=== PATIENT | male | born 2000 | race Caucasian/White ===

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

== ENCOUNTER 2022-08-06 00:45 | Emergency (ER) | payer OTHER, SELFPAY ==
[2022-08-06 00:45] VITALS: BP 165/88; PULSE 82; RESP 16; TEMP 36.6; O2SAT 96; BMI 17.5
--- NOTE | 2022-08-06 01:08 | EDS_ITS ---
HPI HPI - Psych History of Present Illness Chief Complaint: Mental Health Detail of Chief Complaint: Depression Informant: patient Onset/Context/Timing Onset: Month(s) Context: Gradual Onset Timing: Intermittent Current Severity: Mild Maximum Severity: Mild Associated Symptoms Associated Symptoms - Psych: Positive for Depressed; Negative for Flight of Ideas, Pressured Speech, Agitated, Angry, Hostile, Threatening, Confusion, Paranoia, Visual Hallucinations or Auditory Hallucinations Narrative Narrative: 21-year-old male history of depression since at least age 18 at that time he prescribed Effexor which he states he really did not take. Currently is on no medications. 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 He just to the last several months his depression seem to have gotten worse. He denies any s roque urge to commit suicide or hurt anyone else. He has never had a prior attempt. At 18 years of age he was admitted to [facility]. Currently he is not seeing anyone for his depression or his mental health. Tonight he will just 1 to come in and talk to somebody about this. Prior similar symptoms: Yes Recent Illness/Hospitalization: No PFSH PFSH Medical History no medical history Home Medications zolpidem 5 mg tablet (Ambien) 5 mg PO QHS PRN INSONO 08/06/22 [History Last Taken Unknown] Allergy/AdvReac Type Severity Reaction Status Date / Time azithromycin Allergy Anaphylaxis Verified 08/06/22 00:48 [From Zithromax Z-Tenzin] Sulfa (Sulfonamide Allergy Rash Verified 08/06/22 00:48 Antibiotics) Social History Smoking Status: Never smoker ROS ROS ED ROS Narrative Denies any recent illness. Review of Systems ROS Unobtainable: Denies due to encephalopathy Constitutional Constitutional ED: Denies chills or fever(s) Eyes Eyes: Denies blurry vision ENT ENT ED: Denies ear pain Cardiovascular Cardiovascular: Denies chest pain Respiratory/Chest Respiratory/Chest: Denies cough or dyspnea Gastrointestinal Gastrointestinal: Denies abdominal pain Genitourinary Genitourinary ED: Denies dysuria or hematuria Musculoskeletal Musculoskeletal: Denies arthralgias Integumentary Denies abscess Neurologic Neurologic: Denies headache(s) Psychiatric Psychiatric: Denies anxiety Endocrine Endocrinology: Denies polydipsia Hematologic/Lymphatic Hematologic/Lymphatic: Denies easy bleeding Allergic/Immunologic Allergic/Immunologic ED: Denies mouth swelling or tongue swelling EXAM Physical Exam Narrative Exam Narrative: 21-year-old male no acute distress. Vital signs are stable afebrile. He is awake alert. He is calm and collected. He makes eye contact. He is cooperative. H EENT exam unremarkable. Neck nontender no signs of trauma. No lymphadenopathy. Lungs clear to auscultation. Heart regular rhythm no murmur. Abdomen soft nontender. Moving all 4 extremities. No signs of trauma. No track ramos. Normal turner in strength. Normal dorsi plantarflexion. Back nontender. Neurologically is awake and alert. No signs of toxidrome. Normal neurologic exam. Const Vital Signs: 08/06/22 00:45 Temperature 97.9 F Temperature Source Temporal Pulse Rate 82 Respiratory Rate 16 Blood Pressure 165/88 H Blood Pressure Mean 113 Pulse Ox 96 Oxygen Delivery Method Room Air Positive well nourished and well developed; Negative for obese, cachectic, contractures or unkempt General Appearance ED: well developed and NAD; Negative for unkempt, cachectic, contractures or pallor Nutritional Appearance: Negative for cachectic or obese HEENT Reports moist mucous membranes normocephalic and atraumatic; Negative for trauma Eyes PERRL and EOMs intact bilaterally General Eye ED: Negative for pale conjunctiva or scleral icterus Neck no lymphadenopathy, supple and no JVD General: Negative for tenderness Resp normal respiratory effort and clear to auscultation bilaterally Effort and Inspection: Negative for retractions Auscultation: Negative for rales, rhonchi or wheezes Cardio S1 normal heart sound, S2 normal heart sound and no murmurs Palpation: Negative for other Rate: regular rate Rhythm: regular rhythm GI non-tender, non-distended and no masses Inspection: Negative for abdominal distention Auscultation: normoactive bowel sounds Palpation: soft; Negative for tender or guarding Back/Spine no CVA tenderness General Back: Negative for CVA tenderness Cervical Spine: Negative for cervical spine tenderness Thoracic Spine / Upper Back: Negative for thoracic spinal tenderness Lumbar Spine / Lower Back: Negative for lumbar spinal tenderness Coccyx: Negative for other Extremity normal to inspection General Extremety ED: Negative for edema or tenderness General Extremity: Negative for edema Neuro oriented x3 and CN's II-XII intact bilaterally Sensorium / Orientation: alert, oriented to person, oriented to place and oriented to time; Negative for orientation impaired, confused, lethargic or stuporous Motor Exam: strength 5/5 throughout Psych mental status grossly normal, thought process normal, cooperative, affect normal, speech normal, activity/motor behavior normal, denies hallucinations, denies homicidal ideation and denies suicidal ideation Appearance: grossly normal, appropriate and well kempt; Negative for unkempt, disheveled, bizarre or intubated Attitude: calm, engaged, No paranoid, No withdrawn, No bizarre and No uncooperative Activity / Motor Behavior: appropriate eye contact; Negative for psychomotor agitation, restless, mannerisms, stereotypies or avoids eye contact Speech: normal speech and No incoherent Mood & Affect: depressed Thought Process: normal thought process Thought Content: normal thought content Attention / Concentration: attention grossly intact Memory / Cognition: memory grossly intact Insight: insight good Judgement: judgement good Skin General Skin Exam: Negative for jaundice or pallor Lesions: no lesions Rashes: no rashes Trauma: Negative for abrasion Wounds: Negative for amputation MDM MDM MDM Narrative Medical decision making narrative: 21-year-old male history of depression increased depression lately. At this time I do not feel he is a significant suicide risk. He feels comfortable being discharged home he does state he would be with his girlfriend zaina. His mom also lives locally. He will talk to crisis and then will make a disposition decision at that time. I think most likely he will be able to be discharged home with follow-up. Patient spoke with the counseling center personnel on-call zaina. They are into an out reach and follow-up with him tomorrow. Begin instructions of follow-up with the counseling center as an outpatient. Return if feeling worse or suicidal. Discharge Plan Triage Chief Complaint: Mental Health ED Provider: Qamar Johnson Dx/Rx/DC Orders Clinical Impression: Depression Instructions: ED Depression Prescriptions: No Action zolpidem [Ambien] 5 mg Tablet 5 mg PO QHS PRN (Reason: INSONO) Primary Care Provider: Rush Jo Referrals: Counseling,Center [Group of Physicians] - As soon as possible Rush Jo [Primary Care Provider] - Activity Restrictions/Additional Instructions: Call and follow-up with the counseling center to make an actual appointment. After evaluated by them they can determine along with your input if you need to be started on antidepressant medications. Return emergency department if you are feeling worse or that you might harm yourself. Disposition Disposition: Home, Self Care
[2022-08-06 01:32] VITALS: BP 165/88; PULSE 82; RESP 16; O2SAT 96
== END 2022-08-06 01:33 | disposition home or self-care (01) ==
PROVIDERS: Emergency Provider Emergency Medicine; PCP Family Medicine; Visit Provider Emergency Medicine
DX: F32.A Depression, unspecified (principal); Z79.899 Other long term (current) drug therapy
CPT/HCPCS: 99282

== ENCOUNTER 2023-03-24 21:03 | Emergency (ER) | payer BC, SELFPAY ==
[2023-03-24 21:04] VITALS: BP 171/92; PULSE 87; RESP 16; TEMP 36.6; O2SAT 98; BMI 17.4
--- NOTE | 2023-03-24 21:18 | EX.ED.DYSGE1 ---
HPI History of Present Illness Chief Complaint: Dizziness Informant: patient Narrative Narrative: Patient presents with concern for being dehydrated or having heat exhaustion. He states he was in [place] last week. He feels very dehydrated. Yesterday he drank 2 sports drinks and a glass of water and that did not help. He states he is not urinating as much as normal. He is not sure if it was dark or not. He does not have dysuria. He is not having muscle pain or aches. No fevers chills. He is not having vertigo. He is not actually truly dizzy. He just states he feels like he is dehydrated and dry. He has had no trouble walking or coordination. No spinning sensation. No presyncopal sensation. He does feel little bit tired. Patient denies any medical conditions. Allergy to azithromycin and sulfa He does have his medical card. Only surgeries tonsils and adenoids. PFSH PFS Medical History no medical history Home Medications zolpidem 5 mg tablet (Ambien) 5 mg PO QHS PRN INSONO 08/06/22 [History Last Taken Unknown] Allergy/AdvReac Type Severity Reaction Status Date / Time azithromycin Allergy Anaphylaxis Verified 03/24/23 21:07 [From Zithromax Z-Tenzin] Sulfa (Sulfonamide Allergy Rash Verified 03/24/23 21:07 Antibiotics) Social History Smoking Status: Never smoker ROS ROS ED ROS Narrative A complete review of systems was performed and is negative except as documented in the history of present illness. Some specific details below. Constitutional: No recent fevers or chills. No malaise or muscle aches. EYE: No visual complaints or pain. ENT: No difficulty swallowing. No swelling. No pain. CV: No chest pain or palpitations. Respiratory: No dyspnea. No hemoptysis. No difficulty taking breaths. GI: No nausea and vomiting. He is drinking fluids. He states his stools were a little bit softer but not watery. No blood. : No frequency dysuria or hematuria. He states there is less amount of urine than normal. Musculoskeletal: No recent trauma. No pains. Skin: No rash. Nondiaphoretic. Neuro: No weakness or numbness. Endocrine: No polyuria or polydipsia. EXAM Physical Exam Narrative Exam Narrative: CONSTITUTIONAL: Patient is nontoxic in appearance. The patient looks comfortable. Patient walked back to the room without any difficulty. HEENT: No notable trauma. Mucous membranes minimally dry. EYES: No conjunctival injection. No pallor or icterus. CARDIOVASCULAR: Regular rate. Regular rhythm. No notable murmur. No JVD. RESPIRATORY: No respiratory distress. Breathing is unlabored. No wheezes. No rhonchi. No rales. No pain with a deep breath. GASTROINTESTINAL: Not distended. Bowel sounds are normal. No tenderness. No mass GENITOURINARY: No tenderness over the bladder. No CVA tenderness. MUSCULOSKELETAL: Atraumatic. No peripheral edema. No indication of muscular tenderness NEUROLOGICAL: Patient is alert and appropriate. No focal deficit noted. SKIN: No noted rashes. No petechiae or purpura. No diaphoresis. PSYCHIATRIC: Patient is calm. Mood is appropriate. Const Vital Signs: 03/24/23 21:04 03/24/23 21:28 Temperature 98 F Temperature Source Temporal Pulse Rate 87 Respiratory Rate 16 Respiratory Effort Normal Non-Labored Respiratory Pattern Normal Blood Pressure 171/92 H Blood Pressure Mean 118 Pulse Ox 98 Oxygen Delivery Method Room Air MDM MDM MDM Narrative Medical decision making narrative: Patient's electrolytes show no acute process. There was mild elevation of BUN at 20. Glucose is normal at 85 Calcium is normal at 8.9. Urinalysis showed no sign of infection. No sign of significant dehydration. It was clear. It was not tea colored. Small amount of protein. This can be rechecked. Patient was given IV fluids here. We are rechecking his blood pressure at this time. I do not think that blood pressure needs to be treated. But if is still high I would recommend to follow-up with his primary physician which she should have anyway. I have encouraged p.o. fluids. We discussed returning if he gets muscle aches, darkening the urine, vomiting fevers or any other symptoms Lab Data Attestation: I reviewed the patient's lab results. Labs: Laboratory Results - last 24 hr 03/24/23 03/24/23 21:20 21:26 Sodium 141 Potassium 3.5 Chloride 107 Carbon Dioxide 24.0 Anion Gap 10 BUN 20 H Creatinine 1.14 Estim Creat Clear Calc 79.94 Est GFR (MDRD) Af Amer 104 Est GFR (MDRD) Non-Af 86 BUN/Creatinine Ratio 17.5 Glucose 85 Calcium 8.9 Urine Color Yellow Urine Clarity Clear Urine pH 7.0 Ur Specific Stuart 1.010 Urine Protein 15 H Urine Glucose (UA) Normal Urine Ketones Negative Urine Occult Blood Negative Urine Nitrite Negative Urine Bilirubin Negative Urine Urobilinogen Normal Ur Leukocyte Esterase Negative Urine RBC 0 SEEN Urine WBC 0 SEEN Ur Squamous Epith Cells 0 SEEN Urine Bacteria 0 SEEN Urine Mucus 0 SEEN Discharge Plan Triage Chief Complaint: Dizziness ED Provider: Lorenzo Ramirez Dx/Rx/DC Orders Clinical Impression: Dehydration, mild Instructions: ED Dehydration (Adult) Prescriptions: No Action zolpidem [Ambien] 5 mg Tablet 5 mg PO QHS PRN (Reason: INSONO) Primary Care Provider: Care Physician,No Primary Referrals: Tia Kaur MD [Med Staff - Academic Support Specialist] - 3-5 Days if not improving NOT,DEFINED [Non-Staff] - Activity Restrictions/Additional Instructions: Your blood pressure was mildly elevated at first check here today. You should follow-up with her primary physician for recheck just to make sure that this is not an ongoing issue. Make sure you drink plenty of fluids over the next few days. Try to avoid caffeinated drinks that may dehydrate you further. Disposition Disposition: Home, Self Care
[2023-03-24] MEDS: 0.9% Normal Saline 1,000 ML 1000 ML IV (21:27)
[2023-03-24 21:33] LABS: Bacteria 0 SEEN /hpf (None Seen); Mucous, Urine 0 SEEN /hpf (<or=2+); Red Blood Cells-Urine 0 SEEN /hpf (0-5); Squamous Epithelial Cells - UA 0 SEEN /hpf (0-5); White Blood Cells 0 SEEN /hpf (0-5)
[2023-03-24 21:39] LABS: Color, Urine Yellow (Yellow); Glucose, Dipstick Normal (Normal); Ketone-Dipstick Negative (Negative); Leukocyte Esterase-Dipstick Negative /ul (Negative); Nitrite-Dipstick Negative (Negative); Occult Blood-Urine Negative /ul (Negative); Protein-Dipstick 15 mg/dl (Negative); Urine Bilirubin Dipstick Negative (Negative); Urine Clarity Clear (Clear); Urine Urobilinogen Normal (Normal)
[2023-03-24 21:53] LABS: Anion Gap 10 (5-15); BUN 20 mg/dL (7-18); BUN/Creat Ratio 17.5 RATIO (10-20); Calcium,Total 8.9 mg/dL (8.5-10.1); Chloride 107 mmol/L (98-107); Creatinine, Serum 1.14 mg/dL (0.70-1.30); EST Glomerular Filtration Rate 86 mL/min (>60); Est Glom Filt Rate - Afr Amer 104 mL/min (>60); Estimated Creatinine Clearance 79.94 ml/min; Glucose 85 mg/dL (74-106); Potassium 3.5 mmol/L (3.5-5.1); Sodium Level 141 mmol/L (136-145)
[2023-03-24 22:27] VITALS: BP 135/80; PULSE 78; RESP 16
== END 2023-03-24 22:28 | disposition home or self-care (01) ==
LOC: ED 21:37
PROVIDERS: Emergency Provider Emergency Medicine; Visit Provider Emergency Medicine
DX: E86.0 Dehydration (principal); R42 Dizziness and giddiness
CPT/HCPCS: 80048; 81001; 96360; 99282; J7030; A4216

== ENCOUNTER 2023-03-25 12:14 | Emergency (ER) | payer BC, SELFPAY ==
[2023-03-25 12:15] VITALS: BP 170/87; PULSE 73; RESP 18; TEMP 36.6; O2SAT 96; BMI 17.2
--- NOTE | 2023-03-25 13:00 | RAD_ITS ---
INDICATION: Left upper quadrant pain EXAMINATION/TECHNIQUE: X-RAY - XR Abdomen Series W/ Chest 1 View COMPARISON: : FINDINGS: --Chest: LINES/DEVICES: None. LUNGS: No consolidation, edema or effusion. No pneumothorax. MEDIASTINUM AND CARDIOVASCULAR STRUCTURES: Cardiac silhouette not enlarged. Central airways and mediastinal contour are unremarkable. BONES AND SOFT TISSUES: No acute findings. --Abdomen: BOWEL GAS PATTERN: Non-obstructive. No bowel or stomach distention. FREE AIR: None visualized. ORGANOMEGALY: Not seen. CALCIFICATIONS: No abnormal calcifications observed. BONES AND SOFT TISSUES: No acute findings. RAD/Acute Abdomen Inc Chest IMPRESSION: Negative chest and abdominal series. Electronically Signed: Zoya Pederson MD at 13:32 EDT ,
--- NOTE | 2023-03-25 13:06 | EX.ED.DYSGE1 ---
HPI History of Present Illness Chief Complaint: Abd Pain Narrative Narrative: Patient is a 22-year-old male who is presenting to the ER today with chief complaint of intermittent left upper quadrant pain for the past 3 days. Patient had just recently traveled to [place] and back a few weeks ago. Patient was in the ER yesterday, patient felt dehydrated. Patient had a thorough work-up done, patient was given IV fluids, electrolytes were checked, and patient was discharged. Patient did not mention yesterday that he was having intermittent left upper quadrant pain for the past 3 days. Patient states that he is having a normal soft stool bowel movement. Patient does not believe he is constipated. Patient's had no fall, no trauma, no recent sick contacts, no recent mono exposure. Patient was researching his symptoms on [employer], and patient is concerned about his spleen. Patient has no history of splenic etiology in the past. Patient has no acid reflux or heartburn. No nausea or vomiting today. Patient been eating and drinking without difficulty. No other acute complaints PFSH PFSH Home Medications zolpidem 5 mg tablet (Ambien) 5 mg PO QHS PRN INSONO 08/06/22 [History Last Taken Unknown] Allergy/AdvReac Type Severity Reaction Status Date / Time azithromycin Allergy Anaphylaxis Verified 03/25/23 12:16 [From Zithromax Z-Tenzin] Sulfa (Sulfonamide Allergy Rash Verified 03/25/23 12:16 Antibiotics) Social History Smoking Status: Never smoker ROS ROS ED ROS Narrative REVIEW OF SYSTEMS: Unless otherwise stated in this report the patient's positive and negative responses for review of systems for constitutional, eyes, ENT, cardiovascular, respiratory, gastrointestinal, neurological, , musculoskeletal, and integument systems and related systems to the presenting problem are either stated in the history of present illness or were not pertinent or were negative for the symptoms and/or complaints related to the presenting medical problem. EXAM Physical Exam Narrative Exam Narrative: Vital signs reviewed and patient is not hypoxic. General: The patient appears well and in no apparent distress. Patient is resting comfortably on cart. Not toxic, lethargic, or listless. Skin: Warm, dry, no pallor noted. There is no rash noted. Head: Normocephalic, atraumatic Eye: Normal conjunctiva, no drainage, EOMI. PERRL. Ears, Nose, Mouth, and Throat: oral mucosa is moist. Nares patent. Mouth without vesicles. Ear canals patent. Tm's without Erythema Cardiovascular: Regular Rate and Rhythm, no murmurs, gallops, or rubs Respiratory: Patient is in no distress, no accessory muscle use, lungs are clear to auscultation, no wheezing, rales or rhonchi Back: non-tender, no CVA tenderness bilaterally to percussion. NO CTLS midline or paracervicl tenderness to palpation. GI: Soft, patient has minimal tenderness to palpation to left upper quadrant, no peritoneal signs, no flank pain bilateral, no tenderness to palpation, no masses appreciated. No rebound, guarding, or rigidity noted. Musculoskeletal: The patient has full range of motion of all extremities and joints with no difficulty. Patient has no motor, no sensory deficits. Neurological: A&O x4, normal speech, no focal neurological deficits. Psychiatric: Cooperative Const Vital Signs: 03/25/23 12:15 Temperature 98 F Temperature Source Temporal Pulse Rate 73 Respiratory Rate 18 Blood Pressure 170/87 H Blood Pressure Mean 114 Pulse Ox 96 Oxygen Delivery Method Room Air MDM MDM Radiography Chest X-Ray - ED: Read by ED Physician (Dr Astorga read. abdominal series and chest x-ray showed no acute cardiopulmonary disease, no infiltrate, no effusion. This was read by Dr. Astorga. Abdominal x-ray shows no air-fluid levels, no acute pathology) Diagnostic Testing: Clinical Impression(s) from Imaging Studies Acute Abdomen Series 03/25/23 13:00 IMPRESSION: Negative chest and abdominal series. Electronically Signed: Zoya Pederson MD at 13:32 EDT , Treatment and Re-Evaluation :: Patient abdominal x-ray and chest x-ray showed no acute pathology. Education was done at bedside. Patient has been eating and drinking well no difficulty. Patient appears to have some gas left upper quadrant that could be causing his discomfort today. No obstruction, no ileus, no air-fluid levels, no acute pathology. Patient will follow-up with PCP. Education done. No questions at discharge Discharge Plan Triage Chief Complaint: Abd Pain ED Provider: Tal Astorga Dx/Rx/DC Orders Clinical Impression: Dehydration, mild Instructions: ED Abdominal Pain Unkn Cause Male... Prescriptions: No Action zolpidem [Ambien] 5 mg Tablet 5 mg PO QHS PRN (Reason: INSONO) Primary Care Provider: Care Physician,No Primary Referrals: Care Physician,No Primary [Primary Care Provider] - Disposition Disposition: Home, Self Care
== END 2023-03-25 14:05 | disposition home or self-care (01) ==
PROVIDERS: Emergency Provider Emergency Medicine; Visit Provider Emergency Medicine
DX: E86.0 Dehydration (principal); R10.12 Left upper quadrant pain
CPT/HCPCS: 74022; 99282

== ENCOUNTER 2023-10-13 17:14 | Emergency (ER) | payer BC, SELFPAY ==
[2023-10-13 17:15] VITALS: BP 216/194; PULSE 103; RESP 18; TEMP 36.8; O2SAT 100; BMI 17.9
--- NOTE | 2023-10-13 17:25 | EKG12_ITS ---
Test Reason : CP Blood Pressure : / mmHG Vent. Rate : 102 BPM Atrial Rate : 102 BPM P-R Int : 132 ms QRS Dur : 086 ms QT Int : 322 ms P-R-T Axes : 069 082 029 degrees QTc Int : 419 ms Sinus tachycardia Otherwise normal ECG Confirmed by JEWELL NELSON, THEA ([id number]), editor department ROSENDO HERZOG ([id number]) on 10/15/2023 12:07:11 PM Referred By: Confirmed By:THEA CORCORAN MD
--- NOTE | 2023-10-13 17:26 | ED.VIS.CHEST ---
HPI <MICHAEL Tao - Last Filed: 10/13/23 18:36> History of Present Illness Chief Complaint: Chest Pain Narrative Narrative: 23-year-old male with no past medical history presents with throbbing midsternal chest pain that started around noon. He states he does not recall what he was doing when it started but he was not exerting himself. Pain comes and goes with no pattern. He has no shortness of breath, nausea, vomiting, or diaphoresis. He smokes marijuana; he does not use tobacco. He does not take any medications. No personal cardiopulmonary history. He states his dad has had blood clots and is not sure if anyone has cardiac problems. PFSH <MICHAEL Tao Last Filed: 10/13/23 18:36> PFSH Home Medications zolpidem 5 mg tablet (Ambien) 5 mg PO QHS PRN INSONO 08/06/22 [History Last Taken Unknown] Allergy/AdvReac Type Severity Reaction Status Date / Time azithromycin Allergy Anaphylaxis Verified 10/13/23 17:15 [From Zithromax Z-Tenzin] Sulfa (Sulfonamide Allergy Rash Verified 10/13/23 17:15 Antibiotics) Social History Smoking Status: Never smoker ROS <MICHAEL Tao Last Filed: 10/13/23 18:36> ROS ED ROS Narrative Constitutional: Negative for fever, chills, malaise. CVS: Positive for chest pain. Negative for palpitations, syncope. Respiratory: Negative for shortness of breath, cough. GI: Negative for abdominal pain, nausea, vomiting, melena, hematochezia. Neuro: Negative for headache. EXAM <MICHAEL Tao Last Filed: 10/13/23 18:36> Physical Exam Narrative Exam Narrative: CONST: Patient sitting in no acute distress. EYES: Normal inspection. NECK: Normal inspection. RESP: No respiratory distress, CTAB. CVS: Tachycardia around 110 bpm, regular rhythm, no murmur, no gallop. No chest wall tenderness. ABD: Soft and nontender, no guarding or rebound, nondistended. SKIN: Color normal, no rash, warm, dry, intact. EXTREMITIES: Normal appearance, no pedal edema. 2+ radial and DP pulses. NEURO: Oriented x4. PSYCH: Normal affect. Const Vital Signs: 10/13/23 17:15 10/13/23 17:29 10/13/23 17:37 Temperature 98.3 F Temperature Source Temporal Pulse Rate 103 H Respiratory Rate 18 Blood Pressure 216/194 H 143/69 H Blood Pressure Mean 201 93 Pulse Ox 100 Oxygen Delivery Method Room Air Room Air 10/13/23 18:16 10/13/23 18:35 Temperature Temperature Source Pulse Rate 92 Respiratory Rate 18 Blood Pressure 132/79 H 139/71 H Blood Pressure Mean 96 93 Pulse Ox 99 Oxygen Delivery Method Room Air <Dr. Sammy Alonso DO - Last Filed: 10/13/23 19:27> Physical Exam Const Vital Signs: 10/13/23 17:15 10/13/23 17:29 10/13/23 17:37 Temperature 98.3 F Temperature Source Temporal Pulse Rate 103 H Respiratory Rate 18 Blood Pressure 216/194 H 143/69 H Blood Pressure Mean 201 93 Pulse Ox 100 Oxygen Delivery Method Room Air Room Air 10/13/23 18:16 10/13/23 18:35 Temperature Temperature Source Pulse Rate 92 Respiratory Rate 18 Blood Pressure 132/79 H 139/71 H Blood Pressure Mean 96 93 Pulse Ox 99 Oxygen Delivery Method Room Air <MICHAEL Tao - Last Filed: 10/13/23 18:36> Heart Score History: Slightly/Non-Suspicious ECG: Normal Age: </= 45 years Risk Factors: No Risk Factors Score: 0 <Dr. Sammy Alonso DO - Last Filed: 10/13/23 19:27> Heart Score Score: [address] [facility] <MICHAEL Tao - Last Filed: 10/13/23 18:36> [facility] Narrative Medical decision making narrative: Patient presents with throbbing midsternal chest pain that started around noon. He has no aggravating or alleviating factors. He appears well and nontoxic. Initially he was hypertensive but I do not think this was an accurate reading and recheck is 143/69. Heart rate is between 90 to 105 bpm and sinus rhythm. Lungs are clear. Abdomen soft and nontender. He has no signs of edema or clinical signs of DVT. Cardiac workup was ordered and since he was initially tachycardic I ordered a D-dimer. Labs show white count of 13.5, mild hypokalemia at 3.2 which was replaced p.o. Troponin and D-dimer are within normal limits. EKG is nonischemic and CXR shows no acute process. I do not think he needs serial cardiac enzymes as he has had pain for 5+ hours at this point. I discussed with him we did not find a life-threatening etiology of his symptoms and recommended he establish with a primary care doctor return if symptoms worsen. He was discharged in stable condition. Lab Data Attestation: I reviewed the patient's lab results. Labs: Laboratory Results - last 24 hr 10/13/23 17:27 WBC 13.5 H RBC 5.51 Hgb 17.1 H Hct 48.0 MCV 87.1 MCH 31.0 MCHC 35.6 RDW Std Deviation 39.2 RDW Coeff of Toni 12.2 Plt Count 276 MPV 11.3 Immature Gran % (Auto) 0.400 Neut % (Auto) 61.7 Lymph % (Auto) 29.9 Lares % (Auto) 6.4 Eos % (Auto) 1.2 Baso % (Auto) 0.4 Absolute Neuts (auto) 8.3 H Absolute Lymphs (auto) 4.04 Nucleated RBC % 0 D-Dimer Quant (PE/DVT) < 0.27 L Sodium 137 Potassium 3.2 L Chloride 105 Carbon Dioxide 23.0 Anion Gap 9 BUN 24 H Creatinine 1.18 Estim Creat Clear Calc 78.50 Est GFR (MDRD) Af Amer 99 Est GFR (MDRD) Non-Af 82 BUN/Creatinine Ratio 20.3 H Glucose 112 H Calcium 9.4 Troponin I High Sens 4 Radiography Diagnostic Testing: Clinical Impression(s) from Imaging Studies Chest X-Ray 10/13/23 17:30 IMPRESSION: No acute cardiopulmonary abnormality. No interval change. Electronically Signed: Denver Isaac MD at 17:54 EST , ED attending interpretation of 1-view chest x-ray shows normal heart size, no acute infiltrate, edema, or effusion. EKG Initial EKG: Attestation: I personally reviewed and interpreted this EKG as follows: Interpretation: No Acute Injury Pattern and Sinus Tachycardia Comments: Sinus tachycardia at 102 bpm No acute ischemic changes <Dr. Sammy Alonso, DO - Last Filed: 10/13/23 19:27> [facility] MDM Narrative Medical decision making narrative: Patient presents with throbbing midsternal chest pain that started around noon. He has no aggravating or alleviating factors. He appears well and nontoxic. Initially he was hypertensive but I do not think this was an accurate reading and recheck is 143/69. Heart rate is between 90 to 105 bpm and sinus rhythm. Lungs are clear. Abdomen soft and nontender. He has no signs of edema or clinical signs of DVT. Cardiac workup was ordered and since he was initially tachycardic I ordered a D-dimer. Labs show white count of 13.5, mild hypokalemia at 3.2 which was replaced p.o. Troponin and D-dimer are within normal limits. EKG is nonischemic and CXR shows no acute process. I do not think he needs serial cardiac enzymes as he has had pain for 5+ hours at this point. I discussed with him we did not find a life-threatening etiology of his symptoms and recommended he establish with a primary care doctor return if symptoms worsen. He was discharged in stable condition. This patient was seen with a PA/[employer]ER Individually assessed they patient including history and physical. I have reviewed everything on the chart that is available and agree with the documentation provided by the PA/[employer]ER including discussion about the assessment, treatment plan, discussion, and return precautions. With chest pressure which started around noon. He describes it as throbbing. No history of cardiac disease. He does have a history of anxiety he states that he is not take anything for this. Blood pressure initially elevated at 216/94 but after rechecking this and monitoring it is down to 139/71 differential includes acute coronary syndrome, pneumonia, PE, dissection, anxiety. CBC was obtained to assess white blood cell count, hemoglobin, platelets. BMP to assess renal function, electrolytes, glucose. High-sensitivity troponin and EKG were obtained to assess for dysrhythmia and ischemia. Chest x-ray to rule out pneumonia. D-dimer to rule out PE. Leukocytosis of 13.5 found on CBC. Renal function is normal. Potassium slight low at 3.2. High-sensitivity troponin is 4. I do not believe he is a delta troponin. D-dimer is negative. EKG on my interpretation shows a sinus tachycardia with a ventricular to 108 bpm without sign of ischemic change or ectopy on my interpretation. Chest x-ray my interpretation shows no acute process. Since the patient is feeling better and is currently chest pain-free with a negative work-up I feel he stable for discharge. Return precautions were discussed. Impression: 1. Chest pain Lab Data Labs: Laboratory Results - last 24 hr 10/13/23 17:27 WBC 13.5 H RBC 5.51 Hgb 17.1 H Hct 48.0 MCV 87.1 MCH 31.0 MCHC 35.6 RDW Std Deviation 39.2 RDW Coeff of Toni 12.2 Plt Count 276 MPV 11.3 Immature Gran % (Auto) 0.400 Neut % (Auto) 61.7 Lymph % (Auto) 29.9 Lares % (Auto) 6.4 Eos % (Auto) 1.2 Baso % (Auto) 0.4 Absolute Neuts (auto) 8.3 H Absolute Lymphs (auto) 4.04 Nucleated RBC % 0 D-Dimer Quant (PE/DVT) < 0.27 L Sodium 137 Potassium 3.2 L Chloride 105 Carbon Dioxide 23.0 Anion Gap 9 BUN 24 H Creatinine 1.18 Estim Creat Clear Calc 78.50 Est GFR (MDRD) Af Amer 99 Est GFR (MDRD) Non-Af 82 BUN/Creatinine Ratio 20.3 H Glucose 112 H Calcium 9.4 Troponin I High Sens 4 Radiography Diagnostic Testing: Clinical Impression(s) from Imaging Studies Chest X-Ray 10/13/23 17:30 IMPRESSION: No acute cardiopulmonary abnormality. No interval change. Electronically Signed: Denver Isaac MD at 17:54 EST , Discharge Plan Triage Chief Complaint: Chest Pain ED Midlevel Provider: Angie Gordillo ED Provider: Sammy Alonso Dx/Rx/DC Orders Clinical Impression: Chest pain Instructions: Chest Pain UKO Prescriptions: No Action zolpidem [Ambien] 5 mg Tablet 5 mg PO QHS PRN (Reason: INSONO) Primary Care Provider: Care Physician,No Primary Referrals: Geeta Archer MD [Med Staff - Ocular Care Technician] - Care Physician,No Primary [Primary Care Provider] - Activity Restrictions/Additional Instructions: Today all of your testing was normal. I recommend you call and get a primary care appointment for follow-up. Disposition Disposition: Home, Self Care Discharge Date/Time: 10/13/23 18:43
--- NOTE | 2023-10-13 17:30 | RAD_ITS ---
EXAM: XR CHEST, 1 VIEW CLINICAL INDICATION: chest pain TECHNIQUE: Frontal view of the chest. COMPARISON: XR Chest dated 03/25/2023 FINDINGS: LUNGS AND PLEURAL SPACES: No consolidation or edema. No pneumothorax. No effusion. HEART: Normal heart size. MEDIASTINUM: No mediastinal or hilar mass. BONES/JOINTS: No acute abnormality. RAD/Chest 1 View (Portable) IMPRESSION: No acute cardiopulmonary abnormality. No interval change. Electronically Signed: Denver Isaac MD at 17:54 EST ,
[2023-10-13] MEDS: Aspirin 81 MG TAB.CHEW 324 MG PO (17:31)
[2023-10-13 17:34] LABS: Absolute Lymphocyte Count 4.04 X10^3/uL (0.83-4.51); Absolute Neutrophil Count 8.3 X10^3/uL (2.0-7.7); Basophil# 0.05 X10^3/uL; Basophil% 0.4 % (0-1); Eosinophil# 0.16 X10^3/uL; Eosinophils% 1.2 % (0-5); Hemoglobin 17.1 g/dL (13.0-16.5); Lymphocyte # 4.04 X10^3/ul (0.83-4.51); Lymphocyte % 29.9 % (19-41); Mean Corp Hgb Conc 35.6 g/dL (32-36); Mean Corpuscular Volume 87.1 fL (80-94); Mean Platelet Vol. 11.3 fl (6.2-12.0); Monocyte# 0.86 X10^3/uL; Monocyte% 6.4 % (0-10); NRBC Flagged by Analyzer 0 % (0-5); Neutrophil # 8.33 X10^3/uL (2.7-7.7); Neutrophil % 61.7 % (47-70); Platelet Count 276 K/mm3 (150-450); RBC Distribution Width CV 12.2 % (11.6-14.6); RBC Distribution Width SD 39.2 fl (35.1-43.9); Red Blood Count 5.51 M/mm3 (4.6-6.2); White Blood Count 13.5 K/mm3 (4.4-11.0)
[2023-10-13 17:37] VITALS: BP 143/69
[2023-10-13 17:46] LABS: D-Dimer Quantitative (DVT/PE) < 0.27 FEU/ug/m (0.27-0.49)
[2023-10-13 17:52] LABS: Anion Gap 9 (5-15); BUN 24 mg/dL (7-18); BUN/Creat Ratio 20.3 RATIO (10-20); Calcium,Total 9.4 mg/dL (8.5-10.1); Chloride 105 mmol/L (98-107); Creatinine, Serum 1.18 mg/dL (0.70-1.30); EST Glomerular Filtration Rate 82 mL/min (>60); Est Glom Filt Rate - Afr Amer 99 mL/min (>60); Glucose 112 mg/dL (74-106); Potassium 3.2 mmol/L (3.5-5.1); Sodium Level 137 mmol/L (136-145); Troponin-I HS (w/2H Reflex) 4 pg/mL (3.0-78.0)
[2023-10-13] MEDS: Ketorolac 15 MG/ML Vial IV (18:08)
[2023-10-13] MEDS: Potassium Chloride Oral Tablet 20 MEQ 40 MEQ PO (18:09)
[2023-10-13 18:16] VITALS: BP 132/79; PULSE 92; RESP 18; O2SAT 99
[2023-10-13 18:35] VITALS: BP 139/71
[2023-10-13 19:31] LABS: Reflex Troponin-HS? (from REC) Y
== END 2023-10-13 18:43 | disposition home or self-care (01) ==
PROVIDERS: Physician Assistant; Emergency Provider Student in an Organized Health Care Education/Training Program; Visit Provider Student in an Organized Health Care Education/Training Program
DX: R07.9 Chest pain, unspecified (principal); E87.6 Hypokalemia; R00.0 Tachycardia, unspecified; Z79.899 Other long term (current) drug therapy
CPT/HCPCS: 71045; 80048; 84484; 85025; 85379; 93005; 96374; 99284; A4216

== ENCOUNTER 2023-10-21 19:43 | Emergency (ER) | payer BC, SELFPAY ==
[2023-10-21 19:44] VITALS: BP 149/87; PULSE 111; RESP 18; TEMP 37.1; O2SAT 100; BMI 18.8
--- NOTE | 2023-10-21 20:00 | EDS_ITS ---
<Statement entered by Fifi Morris MD - 10/21/23 20:38> I have personally performed a face to face assessment of the patient and have reviewed the DICK Note. Patient presents secondary to COVID symptoms. He states he developed symptoms last evening and tested positive for COVID. He states he continues to have body aches and fever today despite taking ibuprofen. On further questioning patient is only taking 200 mg. He has not had sore throat or headache. No vomiting or diarrhea. Patient sitting upright in bed no acute distress. Nontoxic-appearing. Head and neck examination unremarkable. Heart is regular rate and rhythm. Lung sounds are clear. Abdomen is soft and nontender. Neuro exam is normal. Patient instructed on correct dosing of ibuprofen. He can also use Tylenol. I advised him to monitor his breathing and obtain a pulse ox if he is feeling more short of breath. Return instructions were provided. HPI History of Present Illness Chief Complaint: Cold Sx Narrative Narrative: Patient is a 23-year-old male with no significant no history of PTSD who presents to the emergency department with congestion, shortness of breath, body aches after being tested positive for COVID-19 yesterday. Patient states he had COVID in the past however he is never felt this bad. He denies any nausea or vomiting. He complains of fever and chills. He states that he is been taking Tamiflu, has been taking 200 mg of ibuprofen. Patient denies any other injury PFSH PFS Home Medications zolpidem 5 mg tablet (Ambien) 5 mg PO QHS PRN INSONO 08/06/22 [History Last Taken Unknown] ondansetron 4 mg disintegrating tablet 4 mg PO Q8H PRN PRN Nausea #10 tabs 10/21/23 [Rx Last Taken Unknown] Allergy/AdvReac Type Severity Reaction Status Date / Time azithromycin Allergy Anaphylaxis Verified 10/21/23 19:46 [From Zithromax Z-Tenzin] Sulfa (Sulfonamide Allergy Rash Verified 10/21/23 19:46 Antibiotics) Social History Smoking Status: Former smoker ROS ROS ED ROS Narrative Constitutional: Negative for weight loss, weakness. Positive fever and chills Eyes: Negative for vision loss, vision change, double vision ENT: Negative for any sore throat, ear pain, congestion Cardiovascular: Negative for any chest pain, tightness, palpitations Respiratory: Negative for any cough, sputum production, hemoptysis, dyspnea, dyspnea on exertion, orthopnea Gastrointestinal: Negative for any abdominal pain, nausea, vomiting, diarrhea, constipation, blood in stool, blood in vomit : Negative for any urinary frequency, dysuria, retention, blood in urine Muscle skeletal: Negative for any arthralgias, neck pain, back pain. Positive for myalgias Neurological: Negative for any headache, syncope, numbness or tingling, dizziness Skin: Negative for any rashes, lumps, itching, abrasions, lacerations Psychiatric: Negative for any depression, anxiety, stress, suicidal ideation, homicidal ideation Hematologic: Negative for any easy bruising, excessive bruising, easy bleeding Allergies: Negative for any eczema, hives, rash EXAM Physical Exam Narrative Exam Narrative: Vital signs reviewed. HEET: Head normocephalic atraumatic, TMs clear bilaterally. Posterior pharynx is clear, moist mucous membranes. Nares clear bilaterally. Neck: Supple with no lymphadenopathy or tenderness. No signs of meningismus. Cardiac: Regular rate and rhythm no murmurs gallops or rubs, equal peripheral pulses bilaterally. Respiratory: Lungs clear to auscultation bilaterally. No chest tenderness. Abdomen: Soft, nontender, nondistended. No abdominal bruit or pulsatile masses. No hepatosplenomegaly Extremities: No peripheral edema, no signs of gross trauma or deformity. Active full range of motion of all extremities. Neuro: Cranial nerves II through XII intact, no focal neurological deficits. Skin: Clean dry and intact with no rash, purpura, petechiae, vesicles or pustules. Backs/flank: No CVA tenderness, no midline spinal tenderness, no deformity. Psych: Normal mood and affect. No SI, HI or acute psychosis. Const Vital Signs: 10/21/23 19:44 10/21/23 19:51 Temperature 98.7 F Temperature Source Temporal Pulse Rate 111 H Respiratory Rate 18 Respiratory Effort Normal Non-Labored Blood Pressure 149/87 H Blood Pressure Mean 107 Pulse Ox 100 Oxygen Delivery Method Room Air [facility] Treatment and Re-Evaluation :: Patient appears generally well, patient appears nontoxic, vital signs are stable. Presenting to the emergency department with complaints of testing positive for COVID-19, having body aches, feeling short of breath. Differential diagnosis includes COVID-19 and symptoms, COVID-pneumonia, was community- acquired pneumonia, other viral-like illness. Vital signs are stable, patient's physical examination was unremarkable. I spoke with the patient at length, it appears that the patient is underdosing his ibuprofen, he was only taking 200 mg, I told he can take 600 mg. He also can take Tylenol as well. He is instructed to maintain hydration. At this time, I do not believe an x-ray is indicated, patient is on day 2, he is to isolate himself for 3 more days, he is to maintain hydration, take ibuprofen and Tylenol. At this time, patient feels comfortable and stable for discharge Discharge Plan Triage Chief Complaint: Cold Sx ED Midlevel Provider: Dimas Javier ED Provider: Fifi Morris Dx/Rx/DC Orders Clinical Impression: COVID Instructions: Coronavirus Disease 2019 (COVID-19): Overview Prescriptions: New ondansetron 4 mg tablet,disintegrating 4 mg PO Q8H PRN PRN (Reason: Nausea) Qty: 10 0RF No Action zolpidem [Ambien] 5 mg Tablet 5 mg PO QHS PRN (Reason: INSONO) Primary Care Provider: Care Physician,No Primary Referrals: Care Physician,No Primary [Primary Care Provider] - Activity Restrictions/Additional Instructions: Use the nausea medicine as needed. You can take 600 mg of ibuprofen every 8 hours, you can take 1 g of Tylenol every 6 hours. Make sure that you maintain hydration. Disposition Disposition: Home, Self Care
[2023-10-21] MEDS: Acetaminophen 500 MG Tablet 1000 MG PO (20:04)
[2023-10-21] MEDS: Ketorolac 30 MG/ML Syringe IM (20:05)
[2023-10-21] MEDS: Ondansetron ODT 4 MG Tablet PO (20:05)
== END 2023-10-21 20:28 | disposition home or self-care (01) ==
LOC: ED 20:20
PROVIDERS: Emergency Provider Emergency Medicine; Visit Provider Emergency Medicine
DX: U07.1 COVID-19 (principal); Z79.899 Other long term (current) drug therapy; Z87.891 Personal history of nicotine dependence
CPT/HCPCS: 96372; 99283

== ENCOUNTER 2024-01-23 12:26 | Emergency (ER) | payer BC, SELFPAY ==
[2024-01-23 12:26] VITALS: BP 158/88; PULSE 97; RESP 16; TEMP 36.6; O2SAT 100; BMI 19.3
--- NOTE | 2024-01-23 15:13 | ED.VIS.GI ---
HPI HPI - GI History of Present Illness Chief Complaint: Abd Pain Narrative Narrative: 23-year-old male presenting with nonspecific cramping on bilateral abdomen. He states has not had constipation, diarrhea, fever, chills, nausea, vomiting. Patient patient denies feeling ill. He states that he noted today he had something in his underwear that would like a worm. He took him to the urgent care and took a picture of this. He states the urgent care sent it off for pathology and they referred him to the ER for evaluation. Patient states that he likely would not have, if not referred. He states that the worm was hard and thick. It was how long and skinny. It was not alive if it was not warm. He did show me a picture which is black and white. This is not very clear of a picture. PFSH PFSH Medical History no medical history Home Medications zolpidem 5 mg tablet (Ambien) 5 mg PO QHS PRN INSONO 08/06/22 [History Last Taken Unknown] ondansetron 4 mg disintegrating tablet 4 mg PO Q8H PRN PRN Nausea #10 tabs 10/21/23 [Rx Last Taken Unknown] Allergy/AdvReac Type Severity Reaction Status Date / Time azithromycin Allergy Anaphylaxis Verified 01/23/24 12:26 [From Zithromax Z-Tenzin] Sulfa (Sulfonamide Allergy Rash Verified 01/23/24 12:26 Antibiotics) Surgical History no surgical history Social History Smoking Status: Former smoker ROS ROS ED Constitutional Constitutional ED: Denies chills, fever(s) or sweats Eyes Eyes: Denies blurry vision or change in vision ENT ENT ED: Denies ear pain or sore throat Cardiovascular Cardiovascular: Denies chest pain, palpitations or racing heartbeat Respiratory/Chest Respiratory/Chest: Denies cough, dyspnea or sputum Gastrointestinal Gastrointestinal: Reports abdominal pain; Denies constipation, diarrhea, nausea or vomiting Genitourinary Genitourinary ED: Denies dysuria, hematuria or urinary frequency Musculoskeletal Musculoskeletal: Denies arthralgias, myalgias or neck pain Integumentary Denies abscess, Abrasions or rash Neurologic Neurologic: Denies headache(s), paresthesias or weakness Psychiatric Psychiatric: Denies anxiety, depression, suicidal ideation or suicidal thoughts Endocrine Endocrinology: Denies polydipsia or polyuria EXAM Physical Exam Const Vital Signs: 01/23/24 12:26 Temperature 97.9 F Temperature Source Temporal Pulse Rate 97 Respiratory Rate 16 Blood Pressure 158/88 H Blood Pressure Mean 111 Pulse Ox 100 Oxygen Delivery Method Room Air Positive well nourished General Appearance ED: Negative for pallor HEENT Reports moist mucous membranes normocephalic and atraumatic Eyes PERRL and EOMs intact bilaterally Resp normal respiratory effort Cardio regular rate and regular rhythm GI non-tender, non-distended and no masses Neuro Sensorium / Orientation: alert, oriented to person, oriented to place and oriented to time Psych mental status grossly normal Skin General Skin Exam: Negative for jaundice or pallor MDM MDM MDM Narrative Medical decision making narrative: 23-year-old male presenting for evaluation. He has some nonspecific abdominal pain but states he would not of come to the ER for that. He states he has normal bowel pattern. Does not have diarrhea. No fevers or chills. No nausea or vomiting. He feels otherwise healthy. He was more concerned that he found what he thought was a worm in his underwear today. This was already sent out for pathology. I am not sure by looking at the picture of a form that should be as it was a warm. It does not look like a pinworm. He is not have any symptoms perirectally. I counseled him he should wait for the pathology to come back. He can follow-up with his PCP. I do not believe he needs lab work or imaging. Impression: 1. Abdominal Lab Data Attestation: I reviewed the patient's lab results. Discharge Plan Triage Chief Complaint: Abd Pain ED Provider: Sammy Alonso Dx/Rx/DC Orders Instructions: ED Abdominal Pain Unkn Cause Male... Prescriptions: No Action zolpidem [Ambien] 5 mg Tablet 5 mg PO QHS PRN (Reason: INSONO) ondansetron 4 mg tablet,disintegrating 4 mg PO Q8H PRN PRN (Reason: Nausea) Qty: 10 0RF Stand Alone Forms: ED Work / School Excuse, Work / School Excuse Primary Care Provider: Care Physician,No Primary Referrals: Care Physician,No Primary [Primary Care Provider] - Disposition Disposition: Home, Self Care Discharge Date/Time: 01/23/24 13:56
== END 2024-01-23 13:56 | disposition home or self-care (01) ==
PROVIDERS: Emergency Provider Student in an Organized Health Care Education/Training Program; Visit Provider Student in an Organized Health Care Education/Training Program
DX: R10.9 Unspecified abdominal pain (principal); Z87.891 Personal history of nicotine dependence
CPT/HCPCS: 99282